=== PATIENT | female | born 1985 | race Two or more races ===

== ENCOUNTER 2025-08-04 17:05 | Observation (INO) | payer OTHER ==
[~2025-08-04] VITALS: Ht 157.5 cm; Wt 108.9 kg
--- NOTE | 2025-08-04 18:38 | DVH ---
LIMITED OB ULTRASOUND > 14 WKS: HISTORY: Limited Care TECHNIQUE: Multiple real-time grayscale images of the gravid uterus with duplex Doppler color flow an d M-mode spectral analysis. TRANSDUCER: Transabdominal FINDINGS: IUP single live fetus at 38 weeks 4 days +/-3 weeks 0 days based on composite averages of the BPD, he ad circumference, abdominal circumference and femur length Estimated weight 3486 g plus or minus 523 g ; 53.9% heart rate 131 beats per minute REUBEN 11.9 cm Cervix not visible Cephalic Presentation Posterior Grade 3 Placenta without previa or abruption. BPD: 9.43 cm= 38 weeks 3 days HC: 33.55 cm= 38 weeks 3 days AC: 34.06 cm= 38 weeks 0 days FL: 7.71 cm= 39 weeks 3 days HC/AC: 0.99 normal range 0.89- 1.04 FL/AC: 22.64 normal range 20-24.1 CI: 5.48 normal range 70 -86 IMPRESSION: 1. IUP single live fetus at 30 weeks 4 days AUA corresponding to an CECILIO of 08/14/2025. 2. FHR: 131 beats per minute
--- NOTE | 2025-08-05 12:36 | DVHDS2 ---
Physician Discharge Progress N Final Diagnosis: 39wks labor check desires Operations or Procedures: Operations or Procedures nst reactive reviwed,sono Condition on Discharge: Good Disposition: Home Discharge Instructions: Diet: Regular Activity: No Restrictions, As Tolerated Medications: na Follow Up Care: Specialist: pt will go to [facility] as she desires to do Discharge Statement: "Patient was advised to return to the ER or call 911 if any headaches, dizziness, shortness of breath, chest pain, abdominal pain, bleeding, fevers, or worsening of medical condition. Patient was counseled about treatment plan, medications, possible side effects, patientverbalized understanding. All questions were answered to the best of my ability. This discharge took greater then 30 minutes in planning, reviewing documentation, counseling the patient, and discussing with other team members." Visit Coding OBGYN Date of Service: Aug 04, 2025 Billing Provider: OMKAR WOLF DO BOWLING FLOOR MANAGER Common Visit Codes: 69291-NXKPVUB OBS CARE (HIGH) BOWLING FLOOR MANAGER Procedure Codes: 34866-37- NON-STRESS TEST OMKAR WOLF DO Aug 05, 2025 12:36
== END 2025-08-04 19:05 | disposition home or self-care (01) ==
LOC: LDRP 17:05
PROVIDERS: ADMIT Obstetrics & Gynecology; ATTEND Obstetrics & Gynecology
DX: O62.9 Abnormality of forces of labor, unspecified (principal); Z3A.39 39 weeks gestation of pregnancy; Z79.899 Other long term (current) drug therapy; Z98.890 Other specified postprocedural states
CPT/HCPCS: 59025; 76805; 81002; 94760; G0378

== ENCOUNTER 2025-08-26 14:23 | Inpatient (IN) | payer MEDICAID, OTHER ==
[~2025-08-26] VITALS: Ht 157.5 cm; Wt 112.0 kg
[2025-08-26 15:40] LABS: Urine Protein, UAD TRACE (Negative)
[2025-08-26 15:46] LABS: Chloride 105 mmol/L (98-107); Potassium 3.7 mmol/L (3.5-5.1); Sodium 142 mmol/L (136-145)
[2025-08-26 15:47] LABS: Anion Gap 7 (5-15); Calcium 9.3 mg/dL (8.7-10.4); Carbon Dioxide 30 mmol/L (20-31)
[2025-08-26 15:50] LABS: Hematocrit 36.7 % (36.0-46.0); Hemoglobin 12.2 g/dL (12.2-16.2); Mean Corpuscular Hemoglobin 29.5 pg (28.0-32.0); Mean Corpuscular Volume 88.5 fL (80.0-100.0); Nucleated Red Blood Cells % 0.0 %
[2025-08-26 15:52] LABS: BUN/Creatinine Ratio 12.0 (10.0-20.0); Blood Urea Nitrogen 10 mg/dL (9-23); Glucose 97 mg/dL (74-106)
[2025-08-26] MEDS: IOHEXOL 300 MG/ML 100ML BOTTLE IJ ONE (16:10)
--- NOTE | 2025-08-26 16:45 | DVH ---
COMPUTERIZED TOMOGRAPHY ABDOMEN AND PELVIS WITH CONTRAST REASON FOR EXAM: abdominal pain. History of section 08/05/2025 COMPARISON: None TECHNIQUE: The exam was performed on a Multidetector scanner. Spiral scans were acquired from the natalie phragm to the symphysis pubis after administration of IV contrast. 2-D coronal and sagittal reformatt ed images were provided. Radiation optimization: All CT scans at this facility use at least one of th martín dose optimization techniques: Automated exposure control mA and/or kV adjustment per patient size (includes targeted exams where dose is matched to clinical indication) or iterative reconstruction. CONTRAST ADMINISTRATION: 85 mL omnipaque 300 intravenously RADIATION DOSE: CTDI: 23.02 mGy DLP: 1209.4 mGy-cm FINDINGS: The visualized lung bases are grossly clear. There is no pleural effusion. There is no pericardial e ffusion. The spleen is within normal limits for size. The liver is normal in size and contour. No focal hepati c lesion is identified. The portal vein is patent. The gallbladder is surgically absent. The pancrea s is unremarkable. The adrenal glands are normal. The kidneys enhance symmetrically. No solid renal m ass is identified. There is no hydronephrosis of either kidney. There is a 0.9 cm fat density lesion in the interpolar region of the right kidney consistent with angiomyolipoma. There is no abdominal ao rtic aneurysm. The urinary bladder is unremarkable. There is heterogeneous enhancement of the uterus with hypoenhancement in the left fundal region. No acute osseous abnormality is identified. There is a peripherally enhancing 2.2 x 1.2 x 2.6 cm fluid collection abutting the anterior uterine body at th e scar. There is moderate surrounding inflammatory stranding. There is mild sigmoid diverti culosis without evidence of diverticulitis. The colonic stool burden is small. The appendix is reddy l. There is no pathologic distention of the small bowel. IMPRESSION: Tiny peripherally enhancing fluid collection abutting the anterior uterine body at the scar consistent with tiny abscess. Hypoenhancement of the uterus in the left fundal region. This finding is nonspecific. Given the find ing of a pelvic abscess and recent , infection involving the uterus is a consideration.
[2025-08-26] MEDS: ceFAZolin 2 GM/D5W50ml 50 ML IV ONE (19:21)
[2025-08-26 20:00] VITALS: BP 120/76; PULSE 82; RESP 18; TEMP 97.7; O2SAT 98
[2025-08-26] MEDS ORDERED: ACETAMINOPHEN 325 MG TAB PO PRN (20:45)
[2025-08-26] MEDS ORDERED: ONDANSETRON HCL 4 MG/2 ML VIAL IV PRN (20:45)
[2025-08-26] MEDS: ENOXAPARIN SOD 40 MG/0.4 ML SYRINGE SC SCH (20:45)
[2025-08-26 21:07] LABS: Alanine Aminotransferase 14 U/L (7-40); Albumin 4.1 g/dL (3.2-4.8); Total Protein 7.8 g/dL (5.7-8.2)
[2025-08-26 21:22] LABS: Alkaline Phosphatase 150 U/L (46-116); Bilirubin, Direct < 0.1 mg/dL (<0.3); Bilirubin, Total 0.2 mg/dL (0.2-1.0)
[2025-08-26 21:31] LABS: Lipase 30 U/L (12-53)
[2025-08-26 22:13] VITALS: BP 120/76; PULSE 85; RESP 18; TEMP 97.2; O2SAT 98
[2025-08-26] MEDS: POLYETHYLENE GLYCOL 17 GM PWDR PO ONE (22:44)
[2025-08-26 23:00] LABS: Amphetamine Screen, Urine NEGATIVE (NEGATIVE); Barbiturate Scree,Urine NEGATIVE (NEGATIVE); Benzodiazephine Screen, Urine NEGATIVE (NEGATIVE); Cannabinoid Screen, Urine NEGATIVE (NEGATIVE); Cocaine Screen, Urine NEGATIVE (NEGATIVE); Opiate Scree,Urine NEGATIVE (NEGATIVE); Phencyclidine Screen, Urine NEGATIVE (NEGATIVE)
[2025-08-26] MEDS: HYDROcodone-ACET 5/325MG TAB PO PRN (23:01)
[2025-08-27] MEDS ORDERED: SERT100T PO (00:28)
[2025-08-27 01:03] VITALS: BP 100/62; PULSE 67; RESP 19; TEMP 98.4; O2SAT 97
[2025-08-27 05:03] LABS: Hematocrit 33.6 % (36.0-46.0); Hemoglobin 11.2 g/dL (12.2-16.2); Mean Corpuscular Hemoglobin 29.5 pg (28.0-32.0); Mean Corpuscular Volume 88.6 fL (80.0-100.0); Nucleated Red Blood Cells % 0.1 %
[2025-08-27 05:05] VITALS: BP 110/63; PULSE 70; RESP 18; TEMP 97.1; O2SAT 97
[2025-08-27 05:30] LABS: Alanine Aminotransferase 11 U/L (7-40); Albumin 3.6 g/dL (3.2-4.8); Alkaline Phosphatase 114 U/L (46-116); Anion Gap 6 (5-15); BUN/Creatinine Ratio 16.7 (10.0-20.0); Blood Urea Nitrogen 12 mg/dL (9-23); Calcium 8.7 mg/dL (8.7-10.4); Carbon Dioxide 29 mmol/L (20-31); Chloride 106 mmol/L (98-107); Glucose 80 mg/dL (74-106); Potassium 4.2 mmol/L (3.5-5.1); Sodium 141 mmol/L (136-145); Total Protein 6.6 g/dL (5.7-8.2)
[2025-08-27 05:37] LABS: Bilirubin, Total 0.2 mg/dL (0.2-1.0)
[2025-08-27 08:00] VITALS: BP 109/70; PULSE 70; RESP 19; TEMP 97.4; O2SAT 99
[2025-08-27] MEDS: SODIUM CHLORIDE 0.9% 500 ML IV ONE (09:22)
[2025-08-27] MEDS: SERTRALINE HCL 50 MG TAB PO SCH (09:25)
--- NOTE | 2025-08-27 11:16 | ED.PDOC ---
GI ASSESSMENT HPI Comments 40-year-old female who presents to the ED for chief complaint of abdominal pain. Patient states that she gave via 08/05/2025. Patient states that she was playing with son a few days ago and states that she made an abnormal movement and performed a stretch like maneuver and she started to have lower pelvic pain. Patient states she has not associated bleeding but she is having diffuse lower pelvic abdominal pain with the associated headache that has progressively gotten worse since and came today for evaluation. Patient in the ED denies any associated vaginal bleeding nausea vomiting fever or any associated symptoms. Patient in the ED otherwise has noted and stable vitals. Chief Complaint: Abdominal Pain Time Seen by MD: 15:00 Reviewed Notes: Medications, Allergies Allergies: Coded Allergies: Risperidone (Verified Allergy, Unknown, 08/26/25) Information Source: Patient Mode of Arrival: Ambulatory Brought in by: Self Past Medical History PAST MEDICAL HISTORY: Denies Surgical History: MANGANESE HEATER History: Denies all MANGANESE HEATER Hx Family History Family History: Reviewed,noncontributory to illness Social History Smoker: Non-Smoker Alcohol: Denies ETOH Use Drugs: Denies Drug Use Lives In: Home Constitutional: denies: chills, diaphoresis, fatigue, fever, malaise, sweats, weakness, others EENTM: denies: blurred vision, double vision, ear bleeding, ear discharge, ear drainage, ear pain, ear ringing, eye pain, eye redness, hearing loss, mouth pain, mouth swelling, nasal discharge, nose bleeding, nose congestion, nose pain, photophobia, tearing, throat pain, throat swelling, voice changes, others Respiratory: denies: cough, hemoptysis, orthopnea, SOB at rest, shortness of breath, SOB with excertion, stridor, wheezing, others Cardiovascular: denies: chest pain, dizzy spells, diaphoresis, Dyspnea on exertion, edema, irregular heart beat, left arm pain, lightheadedness, pa lpitations, PND, syncope, others Gastrointestinal: reports: abdominal pain; denies: abdomen distended, blood streaked bowels, constipated, diarrhea, dysphagia, difficulty swallowing, hematemesis, melena, nausea, poor appetite, poor fluid intake, rectal bleeding, rectal pain, vomiting, others Genitourinary: denies: abnormal vagina bleeding, burning, dyspareunia, dysuria, flank pain, frequency, hematuria, incontinence, pain, , vagina dis charge, urgency, others Neurological: denies: dizziness, fainting, headache, left sided numbness, left sided weakness, numbness, paresthesia, pre-existing deficit, right sided numbness, right sided weakness, seizure, speech problems, tingling, tremors, weakness, others Musculoskeletal: denies: back pain, gout, joint pain, joint swelling, muscle pain, muscle stiffness, neck pain, others Integumetry: denies: bruises, change in color, change in hair/nails, dryness, laceration, lesions, lumps, rash, wounds, others Allergic/Immunocompromised: denies: Difficulty Healing, Frequent Infections, Hives, Itching, others Hematologic/Lymphatic: denies: anemia, blood clots, easy bleeding, easy bruising, swollen glands, others Endocrine: denies: excessive hunger, excessive sweating, excessive thirst, excessive urination, flushing, intolerance to cold, intolerance to heat, unexplained weight gain, unexplained weight loss, others Psychiatric: denies: anxiety, bipolar disorder, depression, hopeless, panic disorder, schizophrenia, sleepless, suicidal, others All Other Systems: Reviewed and Negative Physical Exam General Appearance: No Apparent Distress, Normal HEENT: Normal ENT Inspection, Pharynx Normal, TMs Normal Neck: Full Range of Motion, Non-Tender, Normal, Normal Inspection Respiratory: Chest Non-Tender, Lungs Clear, No Accessory Muscle Use, No Respiratory Distress, Normal Breath Sounds Cardiovascular: No Edema, No JVD, No Murmur, No Gallop, Normal Peripheral Pulses, Regular Rate/Rhythm Breast Exam: Deferred Gastrointestinal: No Organomegaly, Non Tender, No Pulsatile Mass, Normal Bowel Sounds, Soft Genitalia: Deferred Pelvic: Deferred Rectal: Deferred Extremities: No calf tenderness, Normal capillary refill, Normal inspection, No rmal range of motion, Non-tender, No pedal edema Musculoskeletal : Apperance: Normal Neurologic: Alert, content administrator II-XII nml as Tested, No Motor Deficits, Normal Affect, Normal Mood, No Sensory Deficits Cerebellar Function: Normal Reflexes: Normal Skin: Dry, Normal Color, Warm Lymphatic: No Adenopathy Was a procedure done? Was a procedure done?: No GI differential Dx Differential Diagnosis: GI hemorrhage, Hernia, Trauma intraabdominal X-Ray, Labs, Meds, VS Vital Signs Date Time Temp Pulse Resp B/P (MAP) Pulse Ox O2 Delivery O2 Flow Rate FiO2 08/26/25 15:57 98.2 89 18 117/64 (81) 98 98.2 08/26/25 15:57 89 18 98 Room Air 08/26/25 14:27 98.3 97 20 116/74 98 98.3 Lab Test 08/26/25 15:27 08/26/25 15:21 Range/Units White Blood Count 8.3 4.4-10.8 10^3/uL Red Blood Count 4.15 4.0-5.20 10^6/uL Hemoglobin 12.2 12.2-16.2 g/dL Hematocrit 36.7 36.0-46.0 % Mean Corpuscular Volume 88.5 80.0-100.0 fL Mean Corpuscular Hemoglobin 29.5 28.0-32.0 pg Mean Corpuscular Hemoglobin Concent 33.3 32.0-36.0 g/dL Red Cell Distribution Width 13.2 11.8-14.3 % Platelet Count 378 140-450 10^3/uL Mean Platelet Volume 7.9 6.9-10.8 fL Neutrophils (%) (Auto) 63.1 37.0-80.0 % Lymphocytes (%) (Auto) 27.8 10.0-50.0 % Monocytes (%) (Auto) 6.3 0.0-12.0 % Eosinophils (%) (Auto) 1.9 0.0-7.0 % Basophils (%) (Auto) 0.9 0.0-2.0 % Neutrophils # (Auto) 5.2 1.6-8.6 10 ^3/uL Lymphocytes # (Auto) 2.3 0.4-5.4 10 ^3/uL Monocytes # (Auto) 0.5 0-1.3 10 ^3/uL Eosinophils # (Auto) 0.2 0-0.8 10 ^3/uL Basophils # (Auto) 0.1 0-0.2 10 ^3/uL Nucleated Red Blood Cells 0.0 % Sodium Level 142 136-145 mmol/L Potassium Level 3.7 3.5-5.1 mmol/L Chloride Level 105 98-107 mmol/L Carbon Dioxide Level 30 20-31 mmol/L Anion Gap 7 5-15 Blood Urea Nitrogen 10 9-23 mg/dL Creatinine 0.83 0.550-1.02 mg/dL Glomerular Filtration Rate Calc 90 >90 mL/min BUN/Creatinine Ratio 12.0 10.0-20.0 Serum Glucose 97 74-106 mg/dL Calcium Level 9.3 8.7-10.4 mg/dL Urine Color Yellow Yellow Urine Clarity Clear Clear Urine pH 6.0 5.0-9.0 Urine Specific [place] 1.023 1.001-1.035 Urine Protein Trace H Negative Urine Ketones Negative Negative Urine Blood 2+ H Negative /uL Urine Nitrite Negative Negative Urine Bilirubin Negative Negative Urine Urobilinogen Normal Negative mg/dL Urine Leukocyte Esterase 3+ Negative /uL Urine RBC 22 0 - 4 /hpf Urine Microscopic WBC 11 H 0-5 /HPF Urine Squamous Epithelial Cells Few <5 /hpf Urine Bacteria None seen None Seen /hpf Urine Mucus Few None Seen Urine Glucose Normal Normal mg/dL [place] [id number] Ph: [phone] DIAGNOSTIC IMAGING Diagnostic Imaging Report : [id number] Signed PATIENT: KENNETH RHODAES ACCT: [id number] UNIT: [id number] : 1985 LOC: ER ROOM / BED: / AGE / SEX: 40 / F ADM STATUS: REG ER SERVICE 1521 ORDERING PHYSICIAN: KARL LUCERO MD PROCEDURE(s): ABPLIV - CT AB PEL WITH IV CON ONLY REASON: abdominal pain ORDER NUMBER(s): [id number], ACCESSION NUMBER(s): [id number] COMPUTERIZED TOMOGRAPHY ABDOMEN AND PELVIS WITH CONTRAST REASON FOR EXAM: abdominal pain. History of section 08/05/2025 COMPARISON: None TECHNIQUE: The exam was performed on a Multidetector scanner. Spiral scans were acquired from the diaphragm to the symphysis pubis after administration of IV contrast. 2-D coronal and sagittal reformatted images were provided. Radiation optimization: All CT scans at this facility use at least one of these dose optimization techniques: Automated exposure control mA and/or kV adjustment per patient size (includes targeted exams where dose is matched to clinical indication) or iterative reconstruction. CONTRAST ADMINISTRATION: 85 mL omnipaque 300 intravenously RADIATION DOSE: CTDI: 23.02 mGy DLP: 1209.4 mGy-cm FINDINGS: The visualized lung bases are grossly clear. There is no pleural effusion. There is no pericardial effusion. The spleen is within normal limits for size. The liver is normal in size and contour. No focal hepatic lesion is identified. The portal vein is patent. The gallbladder is surgically absent. The pancreas is unremarkable. The adrenal glands are normal. The kidneys enhance symmetrically. No solid renal mass is identified. There is no hydronephrosis of either kidney. There is a 0.9 cm fat density lesion in the interpolar region of the right kidney consistent with angiomyolipoma. There is no abdominal aortic aneurysm. The urinary bladder is unremarkable. There is heterogeneous enhancement of the uterus with h ypoenhancement in the left fundal region. No acute osseous abnormality is identified. There is a peripherally enhancing 2.2 x 1.2 x 2.6 cm fluid collection abutting the anterior uterine body at the scar. There is moderate surrounding inflammatory stranding. There is mild sigmoid diverticulosis without evidence of diverticulitis. The colonic stool burden is small. The appendix is normal. There is no pathologic distention of the small bowel. IMPRESSION: Tiny peripherally enhancing fluid collection abutting the anterior uterine body at the scar consistent with tiny abscess. Hypoenhancement of the uterus in the left fundal region. This finding is nonspecific. Given the finding of a pelvic abscess and recent , infection involving the uterus is a consideration. ATED BY: WALLY NGUYEN MD DICTATED DATE/TIME: 08/26/25 164 SIGNED BY: WALLY NGUYEN MD SIGNED DATE/TIME: 08/26/251642 CC: Time of 1ST Reevaluation: 15:30 Reevaluation 1ST: Unchanged Patient Education/Counseling: Diagnosis, Treatment Family Education/Counseling: No Family Present SEPSIS Sepsis Screen Date sepsis recognized/suspect: Aug 26, 2025 Time Sepsis recognized/suspect: 1429 Recent Procedure: Yes (C-SEC 08/05/25) On Antibiotic Therapy: No Respiratory Rate >20: No Heart Rate >90: No Temp<36 C (96.8 F) or >38.3 C: No SBP <90 or MAP <65 mmHG: No New Acute Mental Status Change: No Is the patient on CPAP, BIPAP,: No Physician Orders Ct Ab Pel With Iv Con Only (08/26/25 15:21) Vital Signs Date Time Temp Pulse Resp B/P (MAP) Pulse Ox O2 Delivery O2 Flow Rate FiO2 08/26/25 15:57 98.2 89 18 117/64 (81) 98 98.2 08/26/25 15:57 89 18 98 Room Air 08/26/25 14:27 98.3 97 20 116/74 98 98.3 Laboratory Tests Test 08/26/25 15:27 White Blood Count 8.3 10^3/uL (4.4-10.8) Departure 1 Departure Time of Disposition: 17:59 (Patient presented with abdominal pain that was concerning for possible appendicits, gastritis, cholecystitis, colitis, gastroenteritis, sbo, or orther possible surgical emergency. Data: 1. I ordered and reviewed the result of at least 3 labs including a CBC, BMP, and Urinalysis. 2. I independently interpreted the following tests: CT Abdomen and Pelvis is concerning for postsurgical abscess .Risk:This patient has a high risk of morbidity due to further diagnostic testing or treatment and may suffer from an acute abdominal process disorder. Workup reveals small abscess and we will consult Radiology for possible drain and patient should be admitted for further workup. and possible expert consultation. ) Impression: Primary Impression: Postoperative abscess Disposition: ADMITTED INPATIENT Admit to: Med Surg Condition: Guarded Critical Care Note Critical Care Time?: No Stability Stability form required: No Heart Score Heart Score: Heart Score Response (Comments) Value History N/A 0 EKG N/A 0 Age N/A 0 Risk Factors N/A 0 Troponin N/A 0 Total 0 I personally scribed for KARL LUCERO MD ([email or web address]) on 08/26/25 at 15:04. Electronically submitted by [employer] ([email or web address]). I personally scribed for KARL LUCERO MD ([email or web address]) on 08/26/25 at 16:48. Electronically submitted by [employer] ([employer]). KARL LUCERO MD Aug 26, 2025 15:04
--- NOTE | 2025-08-27 11:27 | DVHHPRES ---
History of Present Illness Resident Creating Document: FORREST SETH RESIDENT History of Present Illness 40-year-old female with a PMH of depression and recent childbirth on 08/05/2025 via has come to the ED with chief complaints of pain in her C- section incision site for the past 5 days. Patient describes the pain as a sharp sting which occurred when she stretched herself trying to reach her child, felt a slight rip of the sutures, 10/10 in intensity, intermittent in nature, radiating up to her epigastric region, increased by active movement, bowel movement, urination and associated with nausea and tension type headache. She endorses that the pain has been worsening today which prompted her to visit the emergency room. She denies any bleeding from the surgical site, pus drainage, fever, chills, vomiting, shortness of breath, chest pain or any urinary symptoms. Vitals are stable on admission, CT of the abdomen and pelvis shows: 'Tiny peripherally enhancing fluid collection abutting the anterior uterine body at the scar consistent with tiny abscess; Hypoenhancement of the uterus in the left fundal region. This finding is nonspecific. Given the finding of a pelvic abscess and recent , infection involving the uterus is a consideration.' We are admitting the patient for further workup and management Past medical history: Depression Past surgical history: , cholecystectomy Family history: reviewed and Noncontributory Social history: Patient used to smoke 1 pack per day 23 years, vapes nicotine now, 2 days after childbirth as she does not breastfeed her child, denies alcohol or drug abuse allergies: Seasonal, risperidone( dizziness) PCP: Does not have 1 now Code status: Full code Review of Systems Constitutional: No: Fever, Chills, Sweats, Weakness, Malaise, Other Eyes: No: Pain, Vision change, Conjunctivae inflammation, Eyelid inflammation, Other, Redness Respiratory: No: Cough, Dry, Shortness of breath, SOB with excertion, Wheezing, Hemoptysis, Pleuritic Pain, Sputum, Wheezing, Other Cardiovascular: No: Chest Pain, Palpitations, Orthopnea, Paroxysmal Noc. Dyspnea, Edema, Lt Headedness, Other Gastrointestinal: Abdominal Pain; No: Nausea, Vomiting, Diarrhea, Constipation, Melena, Hematochezia, Other Genitourinary: No Dysuria, No Frequency, No Incontinence, No Hematuria, No Ret ention, No Other Musculoskeletal: No: other, neck pain, shoulder pain, arm pain, back pain, hand pain, leg pain, foot pain Skin: Other (Pain in the surgical sections scar site); No: Rash, Lesions, Jaundice, Bruising Neurological: No: Weakness, Numbness, Incoordination, Change in speech, Confusion, Seizures, Other Allergies: Coded Allergies: Risperidone (Verified Allergy, Unknown, 08/26/25) Medications Current Medications Medications Dose Ordered Sig/Conner Route Start Time Stop Time Status Last Admin Dose Admin Acetaminophen/ Hydrocodone Bitart 1 tab Q4HP PRN PO 08/26/25 20:45 Ondansetron HCl 4 mg Q4HP PRN IV 08/26/25 20:45 Acetaminophen 650 mg Q6HP PRN PO 08/26/25 20:45 Enoxaparin Sodium 40 mg DAILY SC 08/26/25 20:45 Metronidazole 100 ml @ 100 mls/hr Q8H IV 08/27/25 04:00 Ceftriaxone Sodium 50 ml @ 100 mls/hr DAILY@09 IV 08/27/25 09:00 Exam Vital Signs Vital Signs Date Time Temp Pulse Resp B/P (MAP) Pulse Ox O2 Delivery O2 Flow Rate FiO2 08/26/25 19:47 99.1 76 16 125/97 (106) 100 99.1 08/26/25 15:57 Room Air Exam General Appearance: Alert, Oriented X3, Cooperative, Not in acute distress HEENT: Atraumatic, Mucous membranes moist/pink Respiratory: Clear to auscultation, Normal air movement, No added sounds Cardiovascular: Regular rate, Normal S1, Normal S2, No murmurs Abdominal: Active bowel sounds, Soft, no distention, no tenderness Extremities: No edema, Normal pulses, No tenderness/swelling Skin: No Significant rash, presence of surgical section scar, taped the entire length, no erythema Neuro: Normal speech, sensorimotor deficits none Psych/Mental Status: Mental status NL, Mood NL Nurse was there as record tabulating clerk during examination Labs/Xrays Labs Test 08/26/25 18:12 08/26/25 15:27 08/26/25 15:21 Range/Units Lactic Acid Level 0.8 0.4-2.0 mmol/L White Blood Count 8.3 4.4-10.8 10^3/uL Red Blood Count 4.15 4.0-5.20 10^6/uL Hemoglobin 12.2 12.2-16.2 g/dL Hematocrit 36.7 36.0-46.0 % Mean Corpuscular Volume 88.5 80.0-100.0 fL Mean Corpuscular Hemoglobin 29.5 28.0-32.0 pg Mean Corpuscular Hemoglobin Concent 33.3 32.0-36.0 g/dL Red Cell Distribution Width 13.2 11.8-14.3 % Platelet Count 378 140-450 10^3/uL Mean Platelet Volume 7.9 6.9-10.8 fL Neutrophils (%) (Auto) 63.1 37.0-80.0 % Lymphocytes (%) (Auto) 27.8 10.0-50.0 % Monocytes (%) (Auto) 6.3 0.0-12.0 % Eosinophils (%) (Auto) 1.9 0.0-7.0 % Basophils (%) (Auto) 0.9 0.0-2.0 % Neutrophils # (Auto) 5.2 1.6-8.6 10 ^3/uL Lymphocytes # (Auto) 2.3 0.4-5.4 10 ^3/uL Monocytes # (Auto) 0.5 0-1.3 10 ^3/uL Eosinophils # (Auto) 0.2 0-0.8 10 ^3/uL Basophils # (Auto) 0.1 0-0.2 10 ^3/uL Nucleated Red Blood Cells 0.0 % Sodium Level 142 136-145 mmol/L Potassium Level 3.7 3.5-5.1 mmol/L Chloride Level 105 98-107 mmol/L Carbon Dioxide Level 30 20-31 mmol/L Anion Gap 7 5-15 Blood Urea Nitrogen 10 9-23 mg/dL Creatinine 0.83 0.550-1.02 mg/dL Glomerular Filtration Rate Calc 90 >90 mL/min BUN/Creatinine Ratio 12.0 10.0-20.0 Serum Glucose 97 74-106 mg/dL Calcium Level 9.3 8.7-10.4 mg/dL Total Bilirubin 0.2 0.2-1.0 mg/dL Direct Bilirubin < 0.1 <0.3 mg/dL Aspartate Amino Transferase (AST) 24 13-40 U/L Alanine Aminotransferase (ALT) 14 7-40 U/L Alkaline Phosphatase 150 H 46-116 U/L Total Protein 7.8 5.7-8.2 g/dL Albumin 4.1 3.2-4.8 g/dL Lipase 30 12-53 U/L Urine Color Yellow Yellow Urine Clarity Clear Clear Urine pH 6.0 5.0-9.0 Urine Specific [place] 1.023 1.001-1.035 Urine Protein Trace H Negative Urine Ketones Negative Negative Urine Blood 2+ H Negative /uL Urine Nitrite Negative Negative Urine Bilirubin Negative Negative Urine Urobilinogen Normal Negative mg/dL Urine Leukocyte Esterase 3+ Negative /uL Urine RBC 22 0 - 4 /hpf Urine Microscopic WBC 11 H 0-5 /HPF Urine Squamous Epithelial Cells Few <5 /hpf Urine Bacteria None seen None Seen /hpf Urine Mucus Few None Seen Urine Glucose Normal Normal mg/dL SEPSIS Sepsis Screen Date sepsis recognized/suspect: Aug 26, 2025 Time Sepsis recognized/suspect: 1556 Recent Procedure: No On Antibiotic Therapy: No Respiratory Rate >20: No Heart Rate >90: No Temp<36 C (96.8 F) or >38.3 C: No SBP <90 or MAP <65 mmHG: No New Acute Mental Status Change: No Is the patient on CPAP, BIPAP,: No Physician Orders Ct Ab Pel With Iv Con Only (08/26/25 15:21) Blood Culture (08/26/25 17:57) * Radiologist Consult (08/26/25 17:57) Admit (08/26/25 20:33) Code Status (08/26/25 20:33) Hydrocodone-Acet 5/325mg Tab ([place]atum 5/32 (08/26/25 20:45) Ondansetron Hcl (Zofran) (08/26/25 20:45) Complete Blood Count (08/27/25 04:00) Comprehensive Metabolic Panel (08/27/25 04:00) Condition: Fair (08/26/25 20:33) Acetaminophen Tablet (Tylenol Tablet) (08/26/25 20:45) Enoxaparin Sodium (Lovenox) (08/26/25 20:45) Regular Diet (08/27/25 Breakfast) * Costume Seamstress Consultation (08/26/25 20:33) Drug Screen (08/26/25 20:33) Ceftriaxone 1gm/50ml (Rocephin) (08/27/25 09:00) Mrsa Screen (08/26/25 20:33) Metronidazole 500mg/100ml (Flagyl 500mg/ (08/27/25 04:00) Vital Signs Date Time Temp Pulse Resp B/P (MAP) Pulse Ox O2 Delivery O2 Flow Rate FiO2 08/26/25 19:47 99.1 76 16 125/97 (106) 100 99.1 08/26/25 15:57 98.2 89 18 117/64 (81) 98 98.2 08/26/25 15:57 89 18 98 Room Air 08/26/25 14:27 98.3 97 20 116/74 98 98.3 Laboratory Tests Test 08/26/25 15:27 08/26/25 18:12 White Blood Count 8.3 10^3/uL (4.4-10.8) Lactic Acid Level 0.8 mmol/L (0.4-2.0) Medications Medications Dose Ordered Sig/Conner Route Start Time Stop Time Status Last Admin Dose Admin Cefazolin Sodium/ Dextrose 50 ml @ 50 mls/hr ONCE ONCE IV 08/26/25 18:00 08/26/25 18:59 DC 08/26/25 19:21 50 MLS/HR Metronidazole 100 ml @ 100 mls/hr ONCE ONCE IV 08/26/25 18:00 08/26/25 18:59 DC 08/26/25 19:21 100 MLS/HR Assessment/Plan Assessment/Plan # section scar abscess #Possible uterus abscess - IV ceftriaxone 1 g daily - IV metronidazole 500 mg Q 8 daily - OBGYN consult placed - IV fluids 500 mL bolus - pain management with: -Tylenol 650 mg q.6 PRN -[place]atum 5/325 mg q.4 PRN - MiraLAX 17 g powder so patient does not strain - MRSA screen - UDS negative #History of depression Sertraline 100 mg daily continued #Morbid obesity, BMI 42.7 kg/m2 -patient has been counseled extensively regarding lifestyle modification, d ietary changes and weight loss over 8 minutes DVT prophylaxis: Lovenox 40 mg subcutaneous daily Diet: regular diet Goals of care discussed with the patient for more than 27 minutes: Full code status Case discussed with , patient Plan discussed with: Patient My Orders Orders - FORREST SETH RESIDENT Procedure Category Date Status Time Admit ADMIT 08/26/25 Transmitted 20:33 Code Status CODE 08/26/25 Transmitted 20:33 Hydrocodone-Acet PHA 08/26/25 In Process 5/325mg Tab (Tatum 20:45 Ondansetron Hcl PHA 08/26/25 In Process (Zofran) 20:45 Complete Blood Count LAB 08/27/25 Verified 04:00 Comprehensive LAB 08/27/25 Verified Metabolic Panel 04:00 Condition: Fair MONICA 08/26/25 In Process 20:33 Acetaminophen Tablet PHA 08/26/25 In Process (Tylenol Tablet) 20:45 Enoxaparin Sodium PHA 08/26/25 In Process (Lovenox) 20:45 Regular Diet DIET 08/27/25 Transmitted Breakfast * Costume Seamstress Consultation CONS 08/26/25 Transmitted 20:33 Drug Screen LAB 08/26/25 In Process 20:33 Ceftriaxone 1gm/50ml PHA 08/27/25 In Process (Rocephin) 09:00 Mrsa Screen RADHA 08/26/25 Logged 20:33 Metronidazole PHA 08/27/25 In Process 500mg/100ml (Flagyl 04:00 Date of Service: Aug 26, 2025 Billing Provider: GENO JOHNS MD Common Visit Codes: [id number] INP/OBS CARE (HIGH) Secondary Visit Codes: [id number] CARE PLAN 30 MINUTES FORREST SETH RESIDENT Aug 26, 2025 22:30
--- NOTE | 2025-08-27 11:41 | DVHINCON2 ---
Date of service: Aug 27, 2025 Referring Physician hospitalist Reason for Consultation pelvic abscess History of Present Illness 40 y/o female ADMITTED FOR POST OP PELVIC ABSCESS.SHE IS S/P CS AT [facility] ONE WK AGO .SHE REPORTS NO FEVER OR CHILLS BUT HAD SOME ABD PAIN.CT SHOWS SMALL FLD COLLECTION IN PELVIS Past Medical History NA Past Surgical History CS,CHOLECYSTECTOMY Family History NA Social History PREVIOUS SMOKER Patient Family History: Cirrhosis of liver Hepatitis C Allergies: Coded Allergies: Risperidone (Verified Allergy, Unknown, 08/26/25) Home Meds Reported Medications Sertraline Hcl (Zoloft) 100 Mg Tab, 1 TAB PO DAILY, #30 TAB 5 Refills 08/27/25 Current Medications Current Medications Medications (Trade) Dose Ordered Sig/Conner Route PRN Reason Start Time Stop Time Status Last Admin Acetaminophen/ Hydrocodone Bitart ([place] 5/325MG Tab) 1 tab Q4HP PRN PO MODERATE PAIN (4-6 PAIN SCALE) 08/26/25 20:45 08/27/25 05:20 Ondansetron HCl (Zofran) 4 mg Q4HP PRN IV NAUSEA / VOMITING 08/26/25 20:45 Acetaminophen (Tylenol Tablet) 650 mg Q6HP PRN PO PAIN SCALE 1-3 OR TEMP>100.4 08/26/25 20:45 Enoxaparin Sodium (Lovenox) 40 mg DAILY SC 08/26/25 20:45 08/26/25 20:45 Metronidazole 100 ml @ 100 mls/hr Q8H IV 08/27/25 04:00 08/27/25 03:48 Ceftriaxone Sodium 50 ml @ 100 mls/hr DAILY@09 IV 08/27/25 09:00 Sertraline HCl (Zoloft) 100 mg DAILY PO 08/27/25 10:00 Review of Systems Constitutional: no fever, chill, weight loss HEENT: no eye pain, no hearing loss, no oral lesion, no scleral icterus Heart: no chest pain, no chest pressure Lung: no cough, no dyspnea with exertion Abdomen: see HPI : no pain with urination, normal appearing urine Musculoskeletal: no joint pain, no muscle pain Neurological: no seizure, no loss of sensation, no weakness in extremities Pysch: no depression, no anxiety Derm: no rash, no jaundice Vital Signs Vital Signs Date Time Temp Pulse Resp B/P (MAP) Pulse Ox O2 Delivery O2 Flow Rate FiO2 08/27/25 05:05 97.1 70 18 110/63 (79) 97 97.1 08/26/25 20:00 Room Air* 0 21 Physical Exam ALERT AND AWAKE IN NAD HEENT: NL NECK: NL CARDIAC: RRR PULMONARY:CTA ABDOMEN:SOFT,OBESE,NT ,NO ERYTHEMA OR DRAINAGE OF THE SCAR NOTED PELVIC-NO VAG BLEEDING NOTED EXT-NO CCE Labs/Diagnostic Data Labs Test 08/27/25 04:41 08/26/25 18:12 08/26/25 15:27 08/26/25 15:21 Range/Units White Blood Count 8.9 4.4-10.8 10^3/uL Red Blood Count 3.80 L 4.0-5.20 10^6/uL Hemoglobin 11.2 L 12.2-16.2 g/dL Hematocrit 33.6 L 36.0-46.0 % Mean Corpuscular Volume 88.6 80.0-100.0 fL Mean Corpuscular Hemoglobin 29.5 28.0-32.0 pg Mean Corpuscular Hemoglobin Concent 33.3 32.0-36.0 g/dL Red Cell Distribution Width 13.2 11.8-14.3 % Platelet Count 322 140-450 10^3/uL Mean Platelet Volume 7.8 6.9-10.8 fL Neutrophils (%) (Auto) 51.1 37.0-80.0 % Lymphocytes (%) (Auto) 37.5 10.0-50.0 % Monocytes (%) (Auto) 7.8 0.0-12.0 % Eosinophils (%) (Auto) 2.7 0.0-7.0 % Basophils (%) (Auto) 0.9 0.0-2.0 % Neutrophils # (Auto) 4.5 1.6-8.6 10 ^3/uL Lymphocytes # (Auto) 3.3 0.4-5.4 10 ^3/uL Monocytes # (Auto) 0.7 0-1.3 10 ^3/uL Eosinophils # (Auto) 0.2 0-0.8 10 ^3/uL Basophils # (Auto) 0.1 0-0.2 10 ^3/uL Nucleated Red Blood Cells 0.1 % Sodium Level 141 136-145 mmol/L Potassium Level 4.2 3.5-5.1 mmol/L Chloride Level 106 98-107 mmol/L Carbon Dioxide Level 29 20-31 mmol/L Anion Gap 6 5-15 Blood Urea Nitrogen 12 9-23 mg/dL Creatinine 0.72 0.550-1.02 mg/dL Glomerular Filtration Rate Calc 107 >90 mL/min BUN/Creatinine Ratio 16.7 10.0-20.0 Serum Glucose 80 74-106 mg/dL Calcium Level 8.7 8.7-10.4 mg/dL Total Bilirubin 0.2 0.2-1.0 mg/dL Aspartate Amino Transferase (AST) 20 13-40 U/L Alanine Aminotransferase (ALT) 11 7-40 U/L Alkaline Phosphatase 114 46-116 U/L Total Protein 6.6 5.7-8.2 g/dL Albumin 3.6 3.2-4.8 g/dL Lactic Acid Level 0.8 0.4-2.0 mmol/L Direct Bilirubin < 0.1 <0.3 mg/dL Lipase 30 12-53 U/L Urine Color Yellow Yellow Urine Clarity Clear Clear Urine pH 6.0 5.0-9.0 Urine Specific [place] 1.023 1.001-1.035 Urine Protein Trace H Negative Urine Ketones Negative Negative Urine Blood 2+ H Negative /uL Urine Nitrite Negative Negative Urine Bilirubin Negative Negative Urine Urobilinogen Normal Negative mg/dL Urine Leukocyte Esterase 3+ Negative /uL Urine RBC 22 0 - 4 /hpf Urine Microscopic WBC 11 H 0-5 /HPF Urine Squamous Epithelial Cells Few <5 /hpf Urine Bacteria None seen None Seen /hpf Urine Mucus Few None Seen Urine Glucose Normal Normal mg/dL Urine Opiates Screen Negative NEGATIVE Urine Fentanyl Screen Negative NEGATIVE Urine Barbiturates Screen Negative NEGATIVE Urine Phencyclidine Screen Negative NEGATIVE Urine Amphetamines Screen Negative NEGATIVE Urine Benzodiazepines Screen Negative NEGATIVE Urine Cocaine Screen Negative NEGATIVE Urine Cannabinoids Screen Negative NEGATIVE Primary Diagnosis S/P RCS WITH NO WOUND DRAINAGE APPEARS WELL HEALED SMALL FLUID COLLECTION IN PELVIS APPEARS NOT WORRISOM ON ANTIBIOTICS Plan CONTINUE WITH IV ANTIBIOTICS THANK YOU FOR THIS CONSULTATION WILL HAVE DR WELLS FOLLOW HER ON THE WEEKEND Plan discussed with: Patient Visit Coding OBGYN Date of Service: Aug 27, 2025 Billing Provider: OMKAR WOLF DO SPECIALTY SALES CONSULTANT Common Visit Codes: [id number] INP/OBS CARE (HIGH), CONSULTATION ONLY SPECIALTY SALES CONSULTANT Consultation Codes: [id number] INPATIENT CONSULT (HIGH) OMKAR WOLF DO Aug 27, 2025 08:36
[2025-08-27 13:00] VITALS: BP 112/69; PULSE 74; RESP 18; TEMP 98; O2SAT 100
--- NOTE | 2025-08-27 16:46 | DVHPNRES ---
Progress Note Date Seen: Aug 27, 2025 Resident Creating Document: NIURKA YANES RESIDENT Medical Necessity Reason Pt with a Central, PICC or Fol: No Subjective Review of Systems History on arrival: 40-year-old female with a PMH of depression and recent childbirth on 08/05/2025 via has come to the ED with chief complaints of pain in her C- section incision site for the past 5 days. Patient describes the pain as a sharp sting which occurred when she stretched herself trying to reach her child, felt a slight rip of the sutures, 10/10 in intensity, intermittent in nature, radiating up to her epigastric region, increased by active movement, bowel movement, urination and associated with nausea and tension type headache. She endorses that the pain has been worsening today which prompted her to visit the emergency room. She denies any bleeding from the surgical site, pus drainage, fever, chills, vomiting, shortness of breath, chest pain or any urinary symptoms. Vitals are stable on admission, CT of the abdomen and pelvis shows: 'Tiny peripherally enhancing fluid collection abutting the anterior uterine body at the scar consistent with tiny abscess; Hypoenhancement of the uterus in the left fundal region. This finding is nonspecific. Given the finding of a pelvic abscess and recent , infection involving the uterus is a consideration.' We are admitting the patient for further workup and management Past medical history: Depression Past surgical history: , cholecystectomy Family history: reviewed and Noncontributory Social history: Patient used to smoke 1 pack per day 23 years, vapes nicotine now, 2 days after childbirth as she does not breastfeed her child, denies alcohol or drug abuse allergies: Seasonal, risperidone( dizziness) PCP: Does not have 1 now Code status: Full code ROS: Constitutional: Denies weight loss, fever and chills. HEENT: Denies changes in vision and hearing. Respiratory: Denies shortness of breath and cough Cardiovascular: Denies chest discomfort or palpitations GI: Denies abdominal pain, nausea, vomiting and diarrhea. : Pain around the surgical site. Denies dysuria and urinary frequency. Musculoskeletal: Denies myalgias and joint pain Skin: Denies rash and pruritus. Neurological: Denies dizziness, headache, vision or hearing problems 08/27/2025: Patient was seen at bedside today. Patient complains of mild lower abdominal pain. Objective vital signs Vital Sign Date Time Temp Pulse Resp B/P (MAP) Pulse Ox O2 Delivery O2 Flow Rate FiO2 08/27/25 13:00 98.0 74 18 112/69 (83) 100 98.0 08/27/25 08:00 Room Air* 0 21 Total Intake and Output 08/26/25 08/26/25 08/27/25 15:00 23:00 07:00 Intake Total 390 ml Balance 390 ml medications Current Medications Medications Dose Ordered Sig/Conner Route Start Time Stop Time Status Last Admin Dose Admin Acetaminophen/ Hydrocodone Bitart 1 tab Q4HP PRN PO 08/26/25 20:45 08/27/25 15:22 1 TAB Ondansetron HCl 4 mg Q4HP PRN IV 08/26/25 20:45 Acetaminophen 650 mg Q6HP PRN PO 08/26/25 20:45 Enoxaparin Sodium 40 mg DAILY SC 08/26/25 20:45 08/26/25 20:45 40 MG Metronidazole 100 ml @ 100 mls/hr Q8H IV 08/27/25 04:00 08/27/25 11:55 100 MLS/HR Ceftriaxone Sodium 50 ml @ 100 mls/hr DAILY@09 IV 08/27/25 09:00 08/27/25 09:25 100 MLS/HR Sertraline HCl 100 mg DAILY PO 08/27/25 10:00 08/27/25 09:25 100 MG Examination General: Patient alert and oriented in person, place and time. Patient following commands. HEENT: Normocephalic, atraumatic, moist mucous membranes Respiratory/pulmonary: Clear lungs bilaterally, vesicular murmurs present in almost all lung antoine, no associated crackles or wheezes. Cardiovascular: Normal heart sounds S1 and S2 with no associated murmurs Abdomen: Mild tenderness on deep palpation of lower abdomen. section scar: Well healing, no erythema, discharge, swelling or tenderness. Abdomen nondistended, there is no pain to palpation in any of the abdominal quadrants, no palpable masses. Extremities: There is no peripheral edema present at the lower extremities. Peripheral Pulses: 3+ Radial (R). 3+ Radial (L). 3+ Dorsalis pedis (R). 3+ Dorsalis pedis(L) Skin: No rashes or pruritus, there is no sacral edema present at this time. Neurological: Intact cranial nerves with no focal neurologic deficits Genital exam with nurse as sound equipment mechanic: No foul-smelling discharge present at this time laboratory and microbiology Laboratory Tests 08/27/25 04:41 Test 08/27/25 04:41 Range/Units Serum Glucose 80 74-106 mg/dL Problem List/Assessment/Plan Problem List/Assessment/Plan section scar abscess, ruled out Uterine scar abscess UDS negative CT abdomen shows Tiny peripherally enhancing fluid collection abutting the anterior uterine body at the scar consistent with tiny abscess. Continue IV ceftriaxone, metronidazole OBGYN on board Supportive management with IV fluids, pain management, , Zofran MiraLax as needed MRSA screen ordered History of depression Sertraline 100 mg daily continued Morbid obesity BMI 42 Counseled on lifestyle and diet Nicotine dependence History of vape use Patient counseled on bedside for more than 12 minutes to quit nicotine Nicotine patch offered DIET: Regular DVT PROPHYLAXIS: Lovenox GI PROPHYLAXIS: Protonix CODE STATUS: Goals of care discussed with patient at bedside for more than 18 minutes. Full code DISPOSITION: Med/surge This medical document was created using an electronic medical record system with [employer] direct computerized dictation system. Although this document has been carefully reviewed, there may still be some phonetic and typographical errors. These areas are purely typographical due to imperfections of the software programs, and do not reflect any compromise in the patient's medical care. Patient's status and plan discussed with the patient. Case discussed with Dr. Jung Plan discussed with: Patient, Other (Nurses) Date of Service: Aug 27, 2025 Billing Provider: PRITI JUNG MD Common Visit Codes: [id number] INP/OBS CARE(HIGH) NIURKA YANES RESIDENT Aug 27, 2025 16:46 PRITI JUNG MD Aug 30, 2025 20:52
[2025-08-27 17:00] VITALS: BP 101/56; PULSE 68; RESP 18; TEMP 98.4; O2SAT 99
[2025-08-27] MEDS: PANTOPRAZOLE 40 MG TAB PO ONE (17:20)
[2025-08-27 21:09] VITALS: BP 132/45; PULSE 76; RESP 17; TEMP 97.3; O2SAT 99
[2025-08-28 01:12] VITALS: BP 97/52; PULSE 67; RESP 17; TEMP 97.2; O2SAT 99
[2025-08-28 05:07] VITALS: BP 113/52; PULSE 62; RESP 18; TEMP 96.4; O2SAT 98
[2025-08-28] MEDS: PANTOPRAZOLE 40 MG TAB PO SCH (05:31)
[2025-08-28 05:50] LABS: Hematocrit 34.5 % (36.0-46.0); Hemoglobin 11.5 g/dL (12.2-16.2); Mean Corpuscular Hemoglobin 29.7 pg (28.0-32.0); Mean Corpuscular Volume 88.6 fL (80.0-100.0); Nucleated Red Blood Cells % 0.1 %
[2025-08-28 05:53] LABS: Potassium 4.3 mmol/L (3.5-5.1); Sodium 143 mmol/L (136-145)
[2025-08-28 05:54] LABS: Anion Gap 6 (5-15); Carbon Dioxide 29 mmol/L (20-31)
[2025-08-28 05:56] LABS: Calcium 8.3 mg/dL (8.7-10.4); Chloride 108 mmol/L (98-107)
[2025-08-28 05:59] LABS: Glucose 86 mg/dL (74-106)
[2025-08-28 06:00] LABS: BUN/Creatinine Ratio 14.8 (10.0-20.0); Blood Urea Nitrogen 12 mg/dL (9-23)
[2025-08-28 08:00] VITALS: PULSE 79; RESP 16; O2SAT 100
[2025-08-28 08:35] VITALS: BP 102/65; PULSE 79; RESP 16; TEMP 97.7; O2SAT 100
[2025-08-28] MEDS ORDERED: MUPIROCIN 2% OINT 15gm or 22gm TOP SCH (10:00)
[2025-08-28] MEDS: LACTATED RINGER'S 500 ML IV ONE (11:04)
[2025-08-28] MEDS ORDERED: DOXY100C4 PO (11:23)
[2025-08-28] MEDS ORDERED: AUG875T PO (11:23)
--- NOTE | 2025-08-28 11:58 | DVHPN2 ---
Subjective Progress Notes Subjective [facility] quotation clerk, covering for Dr Monet Patient seen/examined s/p C/Section delivery last week at outside facility, [facility] Admitted w/ "tiny" abscess seen on CT scan anterior uterine wall and concerns for endometritis Endorses pain. Denies Fever/ Chills or purulent vaginal discharge Objective PHYSICAL EXAM Physical Exam: Alert, Obese, NAD Abd Soft, incision C/D/I. No fundal/uterine tenderness Ext Neg cody sign Vital Signs and I&O Vital Signs Date Time Temp Pulse Resp B/P (MAP) Pulse Ox O2 Delivery O2 Flow Rate FiO2 08/28/25 13:52 97.9 71 18 08/28/25 13:00 122/82 (95) 98 08/28/25 08:00 Room Air* 0 21 Intake and Output 08/28/25 07:00 Intake Total 1900 ml Balance 1900 ml Intake Oral 1550 ml IV Total 350 ml # Voids 7 # Bowel Movements 3 Lab results Laboratory Tests Test 08/26/25 15:21 08/26/25 15:27 08/26/25 18:12 08/27/25 04:41 Range/Units Urine Color Yellow Yellow Urine Clarity Clear Clear Urine pH 6.0 5.0-9.0 Urine Specific [place] 1.023 1.001-1.035 Urine Protein Trace H Negative Urine Ketones Negative Negative Urine Blood 2+ H Negative /uL Urine Nitrite Negative Negative Urine Bilirubin Negative Negative Urine Urobilinogen Normal Negative mg/dL Urine Leukocyte Esterase 3+ Negative /uL Urine RBC 22 0 - 4 /hpf Urine Microscopic WBC 11 H 0-5 /HPF Urine Squamous Epithelial Cells Few <5 /hpf Urine Bacteria None seen None Seen /hpf Urine Mucus Few None Seen Urine Glucose Normal Normal mg/dL Urine Opiates Screen Negative NEGATIVE Urine Fentanyl Screen Negative NEGATIVE Urine Barbiturates Screen Negative NEGATIVE Urine Phencyclidine Screen Negative NEGATIVE Urine Amphetamines Screen Negative NEGATIVE Urine Benzodiazepines Screen Negative NEGATIVE Urine Cocaine Screen Negative NEGATIVE Urine Cannabinoids Screen Negative NEGATIVE White Blood Count 8.3 8.9 4.4-10.8 10^3/uL Red Blood Count 4.15 3.80 L 4.0-5.20 10^6/uL Hemoglobin 12.2 11.2 L 12.2-16.2 g/dL Hematocrit 36.7 33.6 L 36.0-46.0 % Mean Corpuscular Volume 88.5 88.6 80.0-100.0 fL Mean Corpuscular Hemoglobin 29.5 29.5 28.0-32.0 pg Mean Corpuscular Hemoglobin Concent 33.3 33.3 32.0-36.0 g/dL Red Cell Distribution Width 13.2 13.2 11.8-14.3 % Platelet Count 378 322 140-450 10^3/uL Mean Platelet Volume 7.9 7.8 6.9-10.8 fL Neutrophils (%) (Auto) 63.1 51.1 37.0-80.0 % Lymphocytes (%) (Auto) 27.8 37.5 10.0-50.0 % Monocytes (%) (Auto) 6.3 7.8 0.0-12.0 % Eosinophils (%) (Auto) 1.9 2.7 0.0-7.0 % Basophils (%) (Auto) 0.9 0.9 0.0-2.0 % Neutrophils # (Auto) 5.2 4.5 1.6-8.6 10 ^3/uL Lymphocytes # (Auto) 2.3 3.3 0.4-5.4 10 ^3/uL Monocytes # (Auto) 0.5 0.7 0-1.3 10 ^3/uL Eosinophils # (Auto) 0.2 0.2 0-0.8 10 ^3/uL Basophils # (Auto) 0.1 0.1 0-0.2 10 ^3/uL Nucleated Red Blood Cells 0.0 0.1 % Sodium Level 142 141 136-145 mmol/L Potassium Level 3.7 4.2 3.5-5.1 mmol/L Chloride Level 105 106 98-107 mmol/L Carbon Dioxide Level 30 29 20-31 mmol/L Anion Gap 7 6 5-15 Blood Urea Nitrogen 10 12 9-23 mg/dL Creatinine 0.83 0.72 0.550-1.02 mg/dL Glomerular Filtration Rate Calc 90 107 >90 mL/min BUN/Creatinine Ratio 12.0 16.7 10.0-20.0 Serum Glucose 97 80 74-106 mg/dL Calcium Level 9.3 8.7 8.7-10.4 mg/dL Total Bilirubin 0.2 0.2 0.2-1.0 mg/dL Direct Bilirubin < 0.1 <0.3 mg/dL Aspartate Amino Transferase (AST) 24 20 13-40 U/L Alanine Aminotransferase (ALT) 14 11 7-40 U/L Alkaline Phosphatase 150 H 114 46-116 U/L Total Protein 7.8 6.6 5.7-8.2 g/dL Albumin 4.1 3.6 3.2-4.8 g/dL Lipase 30 12-53 U/L Lactic Acid Level 0.8 0.4-2.0 mmol/L Test 08/28/25 05:16 Range/Units White Blood Count 7.3 4.4-10.8 10^3/uL Red Blood Count 3.89 L 4.0-5.20 10^6/uL Hemoglobin 11.5 L 12.2-16.2 g/dL Hematocrit 34.5 L 36.0-46.0 % Mean Corpuscular Volume 88.6 80.0-100.0 fL Mean Corpuscular Hemoglobin 29.7 28.0-32.0 pg Mean Corpuscular Hemoglobin Concent 33.5 32.0-36.0 g/dL Red Cell Distribution Width 12.8 11.8-14.3 % Platelet Count 316 140-450 10^3/uL Mean Platelet Volume 7.9 6.9-10.8 fL Neutrophils (%) (Auto) 46.8 37.0-80.0 % Lymphocytes (%) (Auto) 41.1 10.0-50.0 % Monocytes (%) (Auto) 8.2 0.0-12.0 % Eosinophils (%) (Auto) 3.1 0.0-7.0 % Basophils (%) (Auto) 0.8 0.0-2.0 % Neutrophils # (Auto) 3.4 1.6-8.6 10 ^3/uL Lymphocytes # (Auto) 3.0 0.4-5.4 10 ^3/uL Monocytes # (Auto) 0.6 0-1.3 10 ^3/uL Eosinophils # (Auto) 0.2 0-0.8 10 ^3/uL Basophils # (Auto) 0.1 0-0.2 10 ^3/uL Nucleated Red Blood Cells 0.1 % Sodium Level 143 136-145 mmol/L Potassium Level 4.3 3.5-5.1 mmol/L Chloride Level 108 H 98-107 mmol/L Carbon Dioxide Level 29 20-31 mmol/L Anion Gap 6 5-15 Blood Urea Nitrogen 12 9-23 mg/dL Creatinine 0.81 0.550-1.02 mg/dL Glomerular Filtration Rate Calc 93 >90 mL/min BUN/Creatinine Ratio 14.8 10.0-20.0 Serum Glucose 86 74-106 mg/dL Calcium Level 8.3 L 8.7-10.4 mg/dL Assessment and Plan ASSESSMENT AND PLAN Assessment and Plan Post op C/Section w/uterine scar "tiny" abscess suggested by CT scan No clinical concern for endometritis or wound infection. Recommend PO antibiotics w/ Augmentin 875mg BID x 10-14 days F/U outpatient in [facility] will sign off Plan discussed with: Patient Visit Coding OBGYN Date of Service: Aug 28, 2025 Billing Provider: BRADLEY KYLE DO TAX ACCOUNTING ASSISTANT Common Visit Codes: CONSULTATION ONLY TAX ACCOUNTING ASSISTANT Consultation Codes: 49755-U/U INPATIENT CONSULT (MOD) BRADLEY KYLE DO Aug 28, 2025 11:58
[2025-08-28 13:00] VITALS: BP 122/82; PULSE 71; RESP 17; TEMP 97.9; O2SAT 98
--- NOTE | 2025-08-28 13:30 | DVHDSRES ---
Discharge Summary Date of Admission Resident Creating Document: NIURKA YANES RESIDENT Aug 26, 2025 at 20:33 Date of Discharge: Aug 28, 2025 Labs/Diagnostic Data: Laboratory Results Test 08/28/25 05:16 08/27/25 04:41 08/26/25 18:12 08/26/25 15:27 White Blood Count 7.3 10^3/uL (4.4-10.8) Red Blood Count 3.89 10^6/uL (4.0-5.20) Hemoglobin 11.5 g/dL (12.2-16.2) Hematocrit 34.5 % (36.0-46.0) Mean Corpuscular Volume 88.6 fL (80.0-100.0) Mean Corpuscular Hemoglobin 29.7 pg (28.0-32.0) Mean Corpuscular Hemoglobin Concent 33.5 g/dL (32.0-36.0) Red Cell Distribution Width 12.8 % (11.8-14.3) Platelet Count 316 10^3/uL (140-450) Mean Platelet Volume 7.9 fL (6.9-10.8) Neutrophils (%) (Auto) 46.8 % (37.0-80.0) Lymphocytes (%) (Auto) 41.1 % (10.0-50.0) Monocytes (%) (Auto) 8.2 % (0.0-12.0) Eosinophils (%) (Auto) 3.1 % (0.0-7.0) Basophils (%) (Auto) 0.8 % (0.0-2.0) Neutrophils # (Auto) 3.4 10 ^3/uL (1.6-8.6) Lymphocytes # (Auto) 3.0 10 ^3/uL (0.4-5.4) Monocytes # (Auto) 0.6 10 ^3/uL (0-1.3) Eosinophils # (Auto) 0.2 10 ^3/uL (0-0.8) Basophils # (Auto) 0.1 10 ^3/uL (0-0.2) Nucleated Red Blood Cells 0.1 % Sodium Level 143 mmol/L (136-145) Potassium Level 4.3 mmol/L (3.5-5.1) Chloride Level 108 mmol/L (98-107) Carbon Dioxide Level 29 mmol/L (20-31) Anion Gap 6 (5-15) Blood Urea Nitrogen 12 mg/dL (9-23) Creatinine 0.81 mg/dL (0.550-1.02) Glomerular Filtration Rate Calc 93 mL/min (>90) BUN/Creatinine Ratio 14.8 (10.0-20.0) Serum Glucose 86 mg/dL (74-106) Calcium Level 8.3 mg/dL (8.7-10.4) Total Bilirubin 0.2 mg/dL (0.2-1.0) Aspartate Amino Transferase (AST) 20 U/L (13-40) Alanine Aminotransferase (ALT) 11 U/L (7-40) Alkaline Phosphatase 114 U/L (46-116) Total Protein 6.6 g/dL (5.7-8.2) Albumin 3.6 g/dL (3.2-4.8) Lactic Acid Level 0.8 mmol/L (0.4-2.0) Direct Bilirubin < 0.1 mg/dL (<0.3) Lipase 30 U/L (12-53) Test 08/26/25 15:21 Urine Color Yellow (Yellow) Urine Clarity Clear (Clear) Urine pH 6.0 (5.0-9.0) Urine Specific [place] 1.023 (1.001-1.035) Urine Protein Trace (Negative) Urine Ketones Negative (Negative) Urine Blood 2+ /uL (Negative) Urine Nitrite Negative (Negative) Urine Bilirubin Negative (Negative) Urine Urobilinogen Normal mg/dL (Negative) Urine Leukocyte Esterase 3+ /uL (Negative) Urine RBC 22 /hpf (0 - 4) Urine Microscopic WBC 11 /HPF (0-5) Urine Squamous Epithelial Cells Few /hpf (<5) Urine Bacteria None seen /hpf (None Seen) Urine Mucus Few (None Seen) Urine Glucose Normal mg/dL (Normal) Urine Opiates Screen Negative (NEGATIVE) Urine Fentanyl Screen Negative (NEGATIVE) Urine Barbiturates Screen Negative (NEGATIVE) Urine Phencyclidine Screen Negative (NEGATIVE) Urine Amphetamines Screen Negative (NEGATIVE) Urine Benzodiazepines Screen Negative (NEGATIVE) Urine Cocaine Screen Negative (NEGATIVE) Urine Cannabinoids Screen Negative (NEGATIVE) Other Laboratory Tests 08/28/25 05:16 Brief Hx & Hospital Course: History on arrival: 40-year-old female with a PMH of depression and recent childbirth on 08/05/2025 via has come to the ED with chief complaints of pain in her C- section incision site for the past 5 days. Patient describes the pain as a sharp sting which occurred when she stretched herself trying to reach her child, felt a slight rip of the sutures, 10/10 in intensity, intermittent in nature, radiating up to her epigastric region, increased by active movement, bowel movement, urination and associated with nausea and tension type headache. She endorses that the pain has been worsening today which prompted her to visit the emergency room. She denies any bleeding from the surgical site, pus drainage, fever, chills, vomiting, shortness of breath, chest pain or any urinary symptoms. Brief hospital course: Initial CT abdomen shows Tiny peripherally enhancing fluid collection abutting the anterior uterine body at the scar. Supportive management with IV fluids, pain management, Zofran, MiraLax as needed. Started on IV ceftriaxone, metronidazole. Ob-Vice President Tax on board, recommended continuing antibiotics. Patient condition improved, she is stable for discharge on oral antibiotics. Conditions treated during the stay: Uterine scar abscess, ruled out section incision site scar abscess, ruled out Tiny uterine fluid collection, normal expected post-op finding Depression Morbid obesity Nicotine dependence History of vape use MRSA in nose Plan: Complete antibiotic course with p.o. Augmentin, Doxycycline for 7 days Continue home medications Take Tylenol OTC for pain as needed Follow up with PCP in one week Consults/Reason for consult Ob-Vice President Tax consulted, S/P recommended continuing Antibiotics Operations or Procedures COMPUTERIZED TOMOGRAPHY ABDOMEN AND PELVIS WITH CONTRAST REASON FOR EXAM: abdominal pain. History of section 08/05/2025 COMPARISON: None TECHNIQUE: The exam was performed on a Multidetector scanner. Spiral scans were acquired from the diaphragm to the symphysis pubis after administration of IV contrast. 2-D coronal and sagittal reformatted images were provided. Radiation optimization: All CT scans at this facility use at least one of these dose optimization techniques: Automated exposure control mA and/or kV adjustment per patient size (includes targeted exams where dose is matched to clinical indication) or iterative reconstruction. CONTRAST ADMINISTRATION: 85 mL omnipaque 300 intravenously RADIATION DOSE: CTDI: 23.02 mGy DLP: 1209.4 mGy-cm FINDINGS: The visualized lung bases are grossly clear. There is no pleural effusion. There is no pericardial effusion. The spleen is within normal limits for size. The liver is normal in size and contour. No focal hepatic lesion is identified. The portal vein is patent. The gallbladder is surgically absent. The pancreas is unremarkable. The adrenal glands are normal. The kidneys enhance symmetrically. No solid renal mass is identified. There is no hydronephrosis of either kidney. There is a 0.9 cm fat density lesion in the interpolar region of the right kidney consistent with angiomyolipoma. There is no abdominal aortic aneurysm. The urinary bladder is unremarkable. There is heterogeneous enhancement of the uterus with hypoenhancement in the left fundal region. No acute osseous abnormality is identified. There is a peripherally enhancing 2.2 x 1.2 x 2.6 cm fluid collection abutting the anterior uterine body at the scar. There is moderate surrounding inflammatory stranding. There is mild sigmoid diverticulosis without evidence of diverticulitis. The colonic stool burden is small. The appendix is normal. There is no pathologic distention of the small bowel. IMPRESSION: Tiny peripherally enhancing fluid collection abutting the anterior uterine body at the scar consistent with tiny abscess. Hypoenhancement of the uterus in the left fundal region. This finding is nonspecific. Given the finding of a pelvic abscess and recent , infection involving the uterus is a consideration. Condition at Discharge: Stable Final Diagnosis/Problems List Uterine scar abscess, ruled out section incision site scar abscess, ruled out Tiny uterine fluid collection, normal expected post-op finding Depression Morbid obesity Nicotine dependence History of vape use MRSA in nose Discharge Disposition: Home Discharge Instruct/Medications Diet: Regular Activity: No Restrictions, As Tolerated Follow Up/Referral: Follow up with PCP in one week Medications: As per EHR New Medications: Amoxicillin & Pot Clavulanate (Augmentin Tablet) 875 Mg Tb 875 MG PO BID for 7 Days, #14 TAB Doxycycline Hyclate (Doxycycline Hyclate) 100 Mg Cap 100 MG PO BID for 7 Days, CAP Continued Medications: Sertraline Hcl (Zoloft) 100 Mg Tab 1 TAB PO DAILY, #30 TAB 5 Refills Scheduled Amoxicillin & Pot Clavulanate (Augmentin Tablet), 875 MG PO BID Doxycycline (Monohydrate) (Doxycycline), 100 MG PO BID Doxycycline Hyclate (Doxycycline Hyclate), 100 MG PO BID Sertraline Hcl (Zoloft), 1 TAB PO DAILY, (Reported) Discharge Statement: "Patient was advised to return to the ER or call 911 if any headaches, dizziness, shortness of breath, chest pain, abdominal pain, bleeding, fevers, or worsening of medical condition. Patient was counseled about treatment plan, medications, possible side effects, patientverbalized understanding. All questions were answered to the best of my ability. This discharge took greater then 30 minutes in planning, reviewing documentation, counseling the patient, and discussing with other team members." ASSESSMENT ASSESSMENT Assessment Uterine scar abscess, ruled out section incision site scar abscess, ruled out Tiny uterine fluid collection, normal expected post-op finding Depression Morbid obesity Nicotine dependence History of vape use MRSA in nose Date of Service: Aug 28, 2025 Billing Provider: PRITI AVERY MD Common Visit Codes: 76571-FJL/OBS DISCH DAY >30min NIURKA YANES RESIDENT Aug 28, 2025 13:30 PRITI AVERY MD Aug 30, 2025 20:52
[2025-08-28 13:52] VITALS: BP 122/82; PULSE 71; RESP 18; TEMP 97.9
[2025-08-28] MEDS ORDERED: DOXY100C79 PO (15:54)
[2025-08-28] MEDS ORDERED: HYDROcodone-ACET 5/325MG TAB PO ONE (16:00)
[2025-08-28] MEDS ORDERED: MUPIROCIN 2% OINT 15gm or 22gm FOR MRSA NARES EACHNOSTRI SCH (22:00)
== END 2025-08-28 16:00 | disposition home or self-care (01) | DRG 561 ==
LOC: ER 14:23 → OVERFLOW 20:33 → CENTRAL 22:05
PROVIDERS: ADMIT Internal Medicine Geriatric Medicine; ATTEND Internal Medicine Geriatric Medicine
DX: O90.89 Other complications of the puerperium, not elsewhere classified (principal); E66.01 Morbid (severe) obesity due to excess calories; O99.215 Obesity complicating the puerperium; O99.345 Other mental disorders complicating the puerperium; F53.0 Postpartum depression; N85.8 Other specified noninflammatory disorders of uterus; Z98.891 History of uterine scar from previous surgery; Z90.49 Acquired absence of other specified parts of digestive tract; Z87.891 Personal history of nicotine dependence
CPT/HCPCS: 36415; 74177; 80048; 80053; 80076; 80307; 81001; 83605; 83690; 85025; 87040; 87081; 87086; 96365; 96368; G0378; J3490

== ENCOUNTER 2025-09-12 09:17 | Emergency (ER) | payer MEDICAID ==
[~2025-09-12] VITALS: Ht 157.5 cm; Wt 107.0 kg
[~2025-09-12 09:17] MED LIST: AUG875T PO; DOXY100C4 PO; DOXY100C79 PO; SERT100T PO
--- NOTE | 2025-09-12 10:20 | ED.PDOC ---
History of Present Illness(SKN HPI Comments 40 y/o F, presents to the ED for CC of wound check. Patient states, she has been experiencing pain at her incision sudden onset, last night (09/11/25). Patient reports, incision was performed on (08/05/25) and was treated for infection [id number] ago. Patient denies fever, drainage, bleeding, nausea, or vomiting. No other symptoms or modifying factors are present at this time. Chief Complaint: Wound Check Time Seen by MD: 10:15 History of Present Illness: Nurses Notes, Medications, Allergies Allergies: Coded Allergies: Risperidone (Verified Allergy, Unknown, 08/26/25) Home Meds Active Scripts Doxycycline (Monohydrate) (Doxycycline) 100 Mg Cap, 100 MG PO BID for 7 Days, CAP Prov:ALESSANDRA BRIDGES 08/28/25 Doxycycline Hyclate (Doxycycline Hyclate) 100 Mg Cap, 100 MG PO BID for 7 Days, CAP Prov:ALESSANDRA BRIDGES 08/28/25 Amoxicillin & Pot Clavulanate (AUGMENTIN TABLET) 875 Mg Tb, 875 MG PO BID for 7 Days, #14 TAB Prov:ALESSANDRA BRIDGES 08/28/25 Reported Medications Sertraline Hcl (Zoloft) 100 Mg Tab, 1 TAB PO DAILY, #30 TAB 5 Refills 08/27/25 Information Source: Patient Mode of Arrival: Ambulatory Severity: Moderate Timing: Days Duration: Since onset Prehospital treatment: None Location: Abdomen (suprapubic area) Object: None Condition of Object: None Retained Foreign Body: No Wound Type: None History of: None Associated Signs and Symptoms: None Past Medical History PAST MEDICAL HISTORY: Denies Surgical History: CREATIVE TECHNOLOGIST History: Denies all CREATIVE TECHNOLOGIST Hx Family History Family History: Reviewed,noncontributory to illness Social History Smoker: Non-Smoker Alcohol: Denies ETOH Use Drugs: Denies Drug Use Lives In: Home Constitutional: denies: chills, diaphoresis, fatigue, fever, malaise, sweats, weakness, others EENTM: denies: blurred vision, double vision, ear bleeding, ear discharge, ear drainage, ear pain, ear ringing, eye pain, eye redness, hearing loss, mouth pain, mouth swelling, nasal discharge, nose bleeding, nose congestion, nose pain, photophobia, tearing, throat pain, throat swelling, voice changes, others Respiratory: denies: cough, hemoptysis, orthopnea, SOB at rest, shortness of breath, SOB with excertion, stridor, wheezing, others Cardiovascular: denies: chest pain, dizzy spells, diaphoresis, Dyspnea on exertion, edema, irregular heart beat, left arm pain, lightheadedness, palpita tions, PND, syncope, others Gastrointestinal: denies: abdomen distended, abdominal pain, blood streaked jennifer wels, constipated, diarrhea, dysphagia, difficulty swallowing, hematemesis, melena, nausea, poor appetite, poor fluid intake, rectal bleeding, rectal pain, vomiting, others Genitourinary: denies: abnormal vagina bleeding, burning, dyspareunia, dysuria, flank pain, frequency, hematuria, incontinence, pain, , vagina discharge, urgency, others Neurological: denies: dizziness, fainting, headache, left sided numbness, left sided weakness, numbness, paresthesia, pre-existing deficit, right sided numbness, right sided weakness, seizure, speech problems, tingling, tremors, weakness, others Musculoskeletal: denies: back pain, gout, joint pain, joint swelling, muscle pain, muscle stiffness, neck pain, others Integumetry: reports: laceration (pain at incision site ); denies: bruises, change in color, change in hair/nails, dryness, lesions, lumps, rash, wounds, others Allergic/Immunocompromised: denies: Difficulty Healing, Frequent Infections, Hives, Itching, others Hematologic/Lymphatic: denies: anemia, blood clots, easy bleeding, easy bruising, swollen glands, others Endocrine: denies: excessive hunger, excessive sweating, excessive thirst, excessive urination, flushing, intolerance to cold, intolerance to heat, une xplained weight gain, unexplained weight loss, others Psychiatric: denies: anxiety, bipolar disorder, depression, hopeless, panic disorder, schizophrenia, sleepless, suicidal, others All Other Systems: Reviewed and Negative Physical Exam General Appearance: Mild Distress HEENT: Normal ENT Inspection, Pharynx Normal, TMs Normal Neck: Full Range of Motion, Non-Tender, Normal, Normal Inspection Respiratory: Chest Non-Tender, Lungs Clear, No Accessory Muscle Use, No Respiratory Distress, Normal Breath Sounds Cardiovascular: No Edema, No JVD, No Murmur, No Gallop, Normal Peripheral Pulses, Regular Rate/Rhythm Breast Exam: Deferred Gastrointestinal: No Organomegaly, Non Tender, No Pulsatile Mass, Normal Bowel Sounds, Soft, Other (The incision is clean not red not inflamed not indurated and there is no herniation noted and also there is no pain to pressure) Genitalia: Deferred Pelvic: Deferred Rectal: Deferred Extremities: No calf tenderness, Normal capillary refill, Normal inspection, Normal range of motion, Non-tender, No pedal edema Neurologic: Alert, ear nose throat surgeon II-XII nml as Tested, No Motor Deficits, Normal Affect, Normal Mood, No Sensory Deficits Cerebellar Function: Normal Reflexes: Normal Skin: Dry, Normal Color, Warm Peripheral Pulses: 1+ carotid (R), 1+ carotid (L) Lymphatic: No Adenopathy Was a procedure done? Was a procedure done?: No Differential Diagnosis (INTG) Differential Diagnosis: Cellulitis Differential Diagnosis: Abscess, Cellulitis Differential Diagnosis: N/A Abscess: N/A Differential Diagnosis: Cellulitis, Laceration, N/A X-Ray, Labs, Meds, VS Vital Signs Date Time Temp Pulse Resp B/P (MAP) Pulse Ox O2 Delivery O2 Flow Rate FiO2 09/12/25 09:19 97.7 79 15 128/77 100 97.7 X-Ray, Labs, Meds, VS Comment Course in the [facility] patient came in to follow up on her incision she said it hurts and she could not sleep last night she was here two weeks ago and was admitted for an infection along the incision she was discharged home two and half days later she was fine until today where she started having the pain again the physical examination is normal Patient will be discharged home with a pain medication Time of 1ST Reevaluation: 10:45 Reevaluation 1ST: Unchanged Patient Education/Counseling: Diagnosis, Treatment Family Education/Counseling: No Family Present SEPSIS Sepsis Screen Date sepsis recognized/suspect: Sep 12, 2025 Time Sepsis recognized/suspect: 918 Recent Procedure: No On Antibiotic Therapy: No Respiratory Rate >20: No Heart Rate >90: No Temp<36 C (96.8 F) or >38.3 C: No SBP <90 or MAP <65 mmHG: No New Acute Mental Status Change: No Is the patient on CPAP, BIPAP,: No Vital Signs Date Time Temp Pulse Resp B/P (MAP) Pulse Ox O2 Delivery O2 Flow Rate FiO2 09/12/25 09:19 97.7 79 15 128/77 100 97.7 Departure 1 Departure Time of Disposition: 10:25 Impression: Primary Impression: History of section, low transverse Additional Impression: Uterine pain Disposition: HOME / SELF CARE / HOMELESS Condition: Fair Additional Instructions: Local heat with your rubber splicer e-Prescriptions Naproxen (Naproxen) 375 Mg Tab 375 MG PO TID for 10 Days, #30 TAB Prov: DELICIA CORRAL MD 09/12/25 Discharged With: Self Critical Care Note Critical Care Time?: No Stability Stability form required: No Heart Score Heart Score: Heart Score Response (Comments) Value History N/A 0 EKG N/A 0 Age <45 0 Risk Factors No known risk factors 0 Troponin N/A 0 Total 0 I personally scribed for DELICIA CORRAL MD ([email or web address]) on 09/12/25 at 10:20. Electronically submitted by Ni Villatoro ([email or web address]). DELICIA CORRAL MD Sep 12, 2025 10:20
[2025-09-12] MEDS ORDERED: NAPR-957 PO (10:27)
[2025-09-12 11:10] VITALS: BP 128/77; PULSE 79; RESP 15; TEMP 97.7; O2SAT 100
== END 2025-09-12 11:28 | disposition home or self-care (01) ==
LOC: ER 09:17
DX: Z98.891 History of uterine scar from previous surgery (principal); Z79.899 Other long term (current) drug therapy; Z88.8 Allergy status to other drugs, medicaments and biological substances

== ENCOUNTER 2025-10-09 15:03 | Emergency (ER) | payer MEDICAID ==
[~2025-10-09] VITALS: Ht 157.5 cm; Wt 106.4 kg
[~2025-10-09 15:03] MED LIST changes: +NAPR-957 PO
--- NOTE | 2025-10-09 20:05 | ED.PDOC ---
History of Present Illness HPI Comments 40 y.o female presents to the ED for an evaluation of flu like symptoms. Patient reports 1 week history of a non productive cough, nausea, runny nose, congestion, and a generalized headache. Patient reports son came home from his father's house and was sick with similar symptoms. She denies any vomiting, fever, chills, diarrhea, chest pain or SOB. Chief Complaint: Flu like Time Seen by MD: 20:00 Reviewed Notes: Nurses Notes, Medications, Allergies Allergies: Coded Allergies: Risperidone (Verified Allergy, Unknown, 08/26/25) Home Meds Active Scripts Naproxen (Naproxen) 375 Mg Tab, 375 MG PO TID for 10 Days, #30 TAB Prov:DELICIA CORRAL MD 09/12/25 Doxycycline (Monohydrate) (Doxycycline) 100 Mg Cap, 100 MG PO BID for 7 Days, CAP Prov:ALESSANDRA BRIDGES 08/28/25 Doxycycline Hyclate (Doxycycline Hyclate) 100 Mg Cap, 100 MG PO BID for 7 Days, CAP Prov:ALESSANDRA BRIDGES 08/28/25 Amoxicillin & Pot Clavulanate (AUGMENTIN TABLET) 875 Mg Tb, 875 MG PO BID for 7 Days, #14 TAB Prov:ALESSANDRA BRIDGES 08/28/25 Reported Medications Sertraline Hcl (Zoloft) 100 Mg Tab, 1 TAB PO DAILY, #30 TAB 5 Refills 08/27/25 Information Source: Patient Mode of Arrival: Ambulatory Severity: Moderate Timing: Weeks (1) Duration: Since onset Past Medical History PAST MEDICAL HISTORY: Denies Surgical History: Cholecystectomy, [employer] History: Denies all [employer] Hx Family History Family History: Reviewed,noncontributory to illness Social History Smoker: Non-Smoker Alcohol: Denies ETOH Use Drugs: Denies Drug Use Lives In: Home Constitutional: denies: chills, diaphoresis, fatigue, fever, malaise, sweats, weakness, others EENTM: reports: nasal discharge, nose congestion; denies: blurred vision, double vision, ear bleeding, ear discharge, ear drainage, ear pain, ear ringing, eye pain, eye redness, hearing loss, mouth pain, mouth swelling, nose bleeding, nose pain, photophobia, tearing, throat pain, throat swelling, voice changes, others Respiratory: reports: cough; denies: hemoptysis, orthopnea, SOB at rest, shortness of breath, SOB with excertion, stridor, wheezing, others Cardiovascular: denies: chest pain, dizzy spells, diaphoresis, Dyspnea on exertion, edema, irregular heart beat, left arm pain, lightheadedness, palpitations, PND, syncope, others Gastrointestinal: reports: nausea; denies: abdomen distended, abdominal pain, blood streaked bowels, constipated, diarrhea, dysphagia, difficulty swallowing, hematemesis, melena, poor appetite, poor fluid intake, rectal bleeding, rectal pain, vomiting, others Genitourinary: denies: abnormal vagina bleeding, burning, dyspareunia, dysuria, flank pain, frequency, hematuria, incontinence, pain, , vagina discharge, urgency, others Neurological: reports: headache; denies: dizziness, fainting, left sided numbness, left sided weakness, numbness, paresthesia, pre-existing deficit, right sided numbness, right sided weakness, seizure, speech problems, tingling, tremors, weakness, others Musculoskeletal: denies: back pain, gout, joint pain, joint swelling, muscle pain, muscle stiffness, neck pain, others Integumetry: denies: bruises, change in color, change in hair/nails, dryness, laceration, lesions, lumps, rash, wounds, others Allergic/Immunocompromised: denies: Difficulty Healing, Frequent Infections, Hives, Itching, others Hematologic/Lymphatic: denies: anemia, blood clots, easy bleeding, easy bruising, swollen glands, others Endocrine: denies: excessive hunger, excessive sweating, excessive thirst, excessive urination, flushing, intolerance to cold, intolerance to heat, unexplained weight gain, unexplained weight loss, others Psychiatric: denies: anxiety, bipolar disorder, depression, hopeless, panic disorder, schizophrenia, sleepless, suicidal, others All Other Systems: Reviewed and Negative Physical Exam General Appearance: No Apparent Distress, Normal HEENT: Pharyngeal Erythema Neck: Normal, Normal Inspection Respiratory: Lungs Clear, No Respiratory Distress, Normal Breath Sounds Cardiovascular: No Edema, No JVD, No Murmur, No Gallop, Normal Peripheral Pulses, Regular Rate/Rhythm Breast Exam: Deferred Gastrointestinal: No Organomegaly, Non Tender, No Pulsatile Mass, Normal Bowel Sounds, Soft Genitalia: Deferred Pelvic: Deferred Rectal: Deferred Extremities: Normal range of motion, No pedal edema Musculoskeletal : Apperance: Normal Neurologic: Alert, No Motor Deficits, Normal Affect, Normal Mood, No Sensory Deficits Cerebellar Function: Normal Reflexes: NOT DONE Skin: Dry, Normal Color, Warm Lymphatic: No Adenopathy Was a procedure done? Was a procedure done?: No Differential Dx Considerations may include: Viral syndrome, URI, Influenza, Bronchitis, PNA, Dehydration, Electrolyte imbalance. X-Ray, Labs, Meds, VS Vital Signs Date Time Temp Pulse Resp B/P (MAP) Pulse Ox O2 Delivery O2 Flow Rate FiO2 10/09/25 20:09 92 17 99 Room Air 10/09/25 20:09 99.0 92 17 126/90 (102) 99 99.0 10/09/25 15:09 98.0 84 16 136/85 98 98.0 Time of 1ST Reevaluation: 20:05 Reevaluation 1ST: Unchanged Time of 2ND Reevaluation: 20:21 Reevaluation 2ND: Improved Patient Education/Counseling: Diagnosis, Treatment Family Education/Counseling: No Family Present SEPSIS Sepsis Screen Date sepsis recognized/suspect: Oct 09, 2025 Time Sepsis recognized/suspect: 151 Recent Procedure: No On Antibiotic Therapy: No Respiratory Rate >20: No Heart Rate >90: No Temp<36 C (96.8 F) or >38.3 C: No SBP <90 or MAP <65 mmHG: No New Acute Mental Status Change: No Is the patient on CPAP, BIPAP,: No Vital Signs Date Time Temp Pulse Resp B/P (MAP) Pulse Ox O2 Delivery O2 Flow Rate FiO2 10/09/25 20:09 92 17 99 Room Air 10/09/25 20:09 99.0 92 17 126/90 (102) 99 99.0 10/09/25 15:09 98.0 84 16 136/85 98 98.0 Departure 1 Departure Time of Disposition: 20:21 Impression: Primary Impression: Sinusitis Qualified Codes: J01.10 - Acute frontal sinusitis, unspecified Disposition: HOME / SELF CARE / HOMELESS Condition: Stable e-Prescriptions Methylprednisolone (Medrol Dosepak) 4 Mg Leandro 4 MG PO UD for 6 Days, #21 TAB UAD Prov: JOON ARZATE [employer] ASSIST[employer] 10/09/25 Amoxicillin & Pot Clavulanate (AUGMENTIN TABLET) 875 Mg Tb 875 MG PO BID for 7 Days, #14 TAB Prov: JOON ARZATE 10/09/25 Discharged With: Significant Other Critical Care Note Critical Care Time?: No Stability Stability form required: No I personally scribed for ER ([email or web address]) on 10/09/25 at 20:05. Electronically submitted by Mónica Murrell ([facility]). ER Oct 09, 2025 20:05 JOON ARZATE Oct 09, 2025 20:16
[2025-10-09 20:09] VITALS: BP 126/90; PULSE 92; RESP 17; TEMP 99; O2SAT 99
[2025-10-09] MEDS ORDERED: AUG875T PO (20:20)
[2025-10-09] MEDS ORDERED: METH4PAK PO (20:21)
== END 2025-10-09 20:30 | disposition home or self-care (01) ==
LOC: ER 15:03
DX: J01.90 Acute sinusitis, unspecified (principal); Z90.49 Acquired absence of other specified parts of digestive tract; Z88.8 Allergy status to other drugs, medicaments and biological substances; Z79.899 Other long term (current) drug therapy
CPT/HCPCS: 96372; 99283; J1100